=== PATIENT | female | born 1990 | race Caucasian/White ===

== ENCOUNTER → 2016-11-28 | Outpatient (CLI) | payer OTHER ==
[~2016-11-28] MED LIST: FIORTAB4 PO; FLUO20 PO; LABE100 PO; LEVO.05 PO; OXYC1SOL5 PO
== END ==
LOC: HPND 07:46
PROVIDERS: ATTEND Obstetrics & Gynecology
DX: O09.211 Supervision of pregnancy with history of pre-term labor, first trimester (principal)
CPT/HCPCS: 36415; 76813

== ENCOUNTER → 2017-01-02 | Outpatient (CLI) | payer OTHER | LOC: HPND 07:50 | PROVIDERS: ATTEND Obstetrics & Gynecology | DX: O44.22 Partial placenta previa NOS or without hemorrhage, second trimester (principal); O99.322 Drug use complicating pregnancy, second trimester; O99.282 Endocrine, nutritional and metabolic diseases complicating pregnancy, second trimester; O09.292 Supervision of pregnancy with other poor reproductive or obstetric history, second trimester; Z3A.18 18 weeks gestation of pregnancy | CPT/HCPCS: 76811; 76817 ==

== ENCOUNTER → 2017-01-30 | Outpatient (CLI) | payer OTHER | LOC: HPND 07:52 | PROVIDERS: ATTEND Obstetrics & Gynecology | DX: O99.322 Drug use complicating pregnancy, second trimester (principal); O09.292 Supervision of pregnancy with other poor reproductive or obstetric history, second trimester; O44.42 Low lying placenta NOS or without hemorrhage, second trimester; O99.282 Endocrine, nutritional and metabolic diseases complicating pregnancy, second trimester; Z3A.22 22 weeks gestation of pregnancy | CPT/HCPCS: 76816; 76825; 76827; 93325 ==

== ENCOUNTER → 2017-03-21 | Emergency (ER) | payer OTHER ==
[~2017-03-21] MED LIST changes: +ASPI-516 CHEW; +COLA100C5; +PREN1PAK9; +PROC10TA PO; +TYLE325T PO; +ZOFR4TAB PO
[2017-03-21 11:45] VITALS: BP 117/76; PULSE 90
[2017-03-21 12:00] VITALS: BP 131/96; PULSE 98
--- NOTE | 2017-03-21 12:08 | PD ---
HPI Chief Complaint r/o preE Date Seen: Mar 21, 2017 Time Seen: 11:57 Travel History International Travel<30 Days: No Contact w/Intl Traveler<30Days: No Known Affected Area: No History of Present Illness HPI 26y/o @ 29.1wks. She has PNC with Dr. Baum. She has a h/o preE/ abruption and at 30wks with first . Has been on 81mg ASA this since 8wks. Also has a h/o migraines (on fiorcet, compazine). Presents today with c/o worsening BECKER over the past week along with some spots in her vision and R sided lower pelvic pain. She also reports swelling in her feet recently. She became concerned by her symptoms given her prior obstetrical outcome and wanted to come in for evaluation. She denies any LOF, VB, or ctx. +FM. Weeks Gestation: 29 Para: 1 : 2 Last Menstrual Period: Mar 21, 2017 History Past Medical History Narrative Medical Liv's thyroiditis migraines Obstetric History Obstetric History G1. c/s at 30wks for preE/abruption G2. current, on ASA 81mg Past Surgical History Narrative Surgical CS tonsillectomy Family History Family History: Negative Social History Alcohol Use: No Tobacco Use: No Substance Abuse: No Allergies-Medications (Allergen,Severity, Reaction): Coded Allergies: sumatriptan (Unverified Adverse Reaction, Severe, WORSE HEADACHE, 11/27/16) Home Meds Reported Medications Acetaminophen (Tylenol) 325 Mg Tab, 650 MG PO Q6H Y for PAIN SCALE 1 TO 3, TAB 0 Refills 03/21/17 Prochlorperazine Maleate (Prochlorperazine Maleate) 10 Mg Tab, 10 MG PO Q6H Y for NAUSEA OR VOMITING, TAB 0 Refills 03/21/17 Docusate Sodium (Colace) 100 Mg Capsule 03/21/17 Ondansetron (Zofran) 4 Mg Tab, 4 MG PO Q6HR Y for NAUSEA OR VOMITING, TAB 0 Refills 03/21/17 Aspirin (Aspirin) 81 Mg Chew, 81 MG CHEW DAILY, TAB 0 Refills 03/21/17 Mv & Min W/Fe Prot Cool ( + Complete Multi 18-0.8 & 290 mg) 18 Mg Iron-800 Mcg-290 Mg-225 Mg Reza 03/21/17 Gfryvitlpc-Vcaovqgnyatrd-Hcnkk (Fioricet) Tab, 1 TAB PO Q4H Y for PAIN, TAB FOR HEADACHE 01/05/13 Levothyroxine Sodium (Synthroid) 50 Mcg Tab, 50 MCG PO DAILY 07/17/12 Discontinued Reported Medications Fluoxetine HCl (Prozac 20 Mg Cap) 20 Mg Cap, 20 MG PO DAILY 10/09/11 Discontinued Scripts Oxycodone W/ Acetaminophen (Oxycodone/Acetaminophen 5-325 mg/5Ml) 5 mg/325 mg Tab, 2 TAB PO Q4H Y for PAIN SCALE 5 TO 10, #62 TAB Prov:Julien Baum MD 11/14/15 Labetalol HCl (Trandate 100 mg Tab) 100 Mg Tab, 100 MG PO BID for Blood Pressure Management, #60 TAB Prov:Julien Buam MD 11/14/15 Review of Systems Except as stated in HPI: all other systems reviewed are Neg Physical Exam Narrative General: well developed, well nourished, no acute distress HEENT: normocephalic atraumatic, extraocular movements intact, neck supple Abdomen: soft, gravid, nontender, nondistended Extremities: full range of motion Skin: normal coloration, no rashes, no suspicious skin lesions noted Neurologic: cranial nerves 2-12 grossly intact, normal muscle tone, normal gait Psychiatric: normal mood and affect, appropriate FHTs: 145, +accels, age appropriate variables, reactive [place]: quiet Cvx: deferred Data Data Vital Signs Reviewed: Yes Orders Orders Vital Signs (Adult) .ON ADMISSION (03/21/17 11:43) ^ Labor Status (03/21/17 11:43) Urinalysis - C+S If Indicated (03/21/17 11:43) ^ Non Stress Test (03/21/17 11:43) Cbc No Diff, Includes Plts (03/21/17 11:43) Comprehensive Metabolic Panel (03/21/17 11:43) Uric Acid (03/21/17 11:43) Protein Creat Ratio, Random Ur (03/21/17 11:43) MDM Plan 26y/o @ 29.1wks with BECKER, swelling. Pt with known migraines but also h/o preE with abruption at 30wks. PIH labs ordered. AST elevated @ 58 (related to tylenol?) and plts at 198. UA neg for prot. BPs normotensive. FHTs cat 1. Dispo: Spoke with Dr. Baum on pt status. Recommended rpt labs to ensure stability within a few days. Precautions reviewed. Diagnosis Diagnosis: Primary Impression: 29 weeks gestation of Additional Impressions: Headache History of pre-eclampsia in prior , currently in third trimester History of Roderick Cm MD Mar 21, 2017 12:08
[2017-03-21 12:15] VITALS: BP 118/74; PULSE 88
[2017-03-21 12:19] LABS: HEMATOCRIT 33.9 % (35.0-46.0); MEAN CELL VOLUME 87.8 FL (80.0-100.0); MEAN CORPUSCULAR HEMOGLOBIN 29.9 PG (27.0-34.0); MEAN CORPUSCULAR HGB CONC 34.1 % (32.0-36.0); PLATELET COUNT 198 TH/MM3 (150-450); RED BLOOD COUNT 3.86 MIL/MM3 (4.00-5.30); RED CELL DISTRIBUTION WIDTH 13.3 % (11.6-17.2); REVIEW FLAG FINAL; WHITE BLOOD COUNT 8.8 TH/MM3 (4.0-11.0)
[2017-03-21 12:28] LABS: BACTERIA, URINE RARE /hpf; BLOOD, URINE NEG (NEG); COMMENT (UR) CULT NOT INDICATED; CULTURE IF INDICATED CULT NOT INDICATED; GLUCOSE,URINE NEG (NEG); KETONE, URINE 10 mg/dL (NEG); NITRITE,URINE NEG (NEG); SQUAMOUS EPITHELIAL CELL URINE 2 /hpf (0-5); URINE COLOR LIGHT-YELLOW (YELLW/STRAW)
[2017-03-21 12:30] VITALS: BP 117/77; PULSE 84
[2017-03-21 12:39] LABS: ALKALINE PHOSPHATASE 94 U/L (45-117); ALT (GPT) 16 U/L (10-53); ANION GAP 7 MEQ/L (5-15); BICARBONATE 23.8 MEQ/L (21.0-32.0); BLOOD UREA NITROGEN 5 MG/DL (7-18); CHLORIDE 106 MEQ/L (98-107); GLOMERULAR FILTRATION RATE 154 ML/MIN (>89); SODIUM (NA) 137 MEQ/L (136-145); TOTAL BILIRUBIN ADULT 0.3 MG/DL (0.2-1.0)
[2017-03-21 12:45] VITALS: BP 115/79; PULSE 85
[2017-03-21 12:49] LABS: AST (GOT) 52 U/L (15-37); POTASSIUM 4.1 MEQ/L (3.5-5.1)
[2017-03-21 13:00] VITALS: BP 120/80; PULSE 93
== END | disposition home or self-care (01) ==
LOC: HOBED 11:21
DX: O26.893 Other specified pregnancy related conditions, third trimester (principal); R51 Headache; Z3A.29 29 weeks gestation of pregnancy; Z79.82 Long term (current) use of aspirin; Z87.59 Personal history of other complications of pregnancy, childbirth and the puerperium
CPT/HCPCS: 80053; 81001; 82570; 84156; 84550; 85027; 99283

== ENCOUNTER → 2017-03-28 | Outpatient (CLI) | payer OTHER ==
[~2017-03-28] MED LIST changes: -FLUO20 PO; -LABE100 PO; -OXYC1SOL5 PO
== END ==
LOC: HPND 07:54
PROVIDERS: ATTEND Obstetrics & Gynecology
DX: O99.323 Drug use complicating pregnancy, third trimester (principal); O09.293 Supervision of pregnancy with other poor reproductive or obstetric history, third trimester
CPT/HCPCS: 76816

== ENCOUNTER 2017-04-03 08:53 | Emergency (ER) | payer OTHER ==
[2017-04-03 09:12] VITALS: BP 122/79; PULSE 99
[2017-04-03 09:15] VITALS: BP 119/79; PULSE 102
[2017-04-03 09:30] VITALS: BP 117/76; PULSE 96
[2017-04-03 09:45] VITALS: BP 121/84; PULSE 102
[2017-04-03 09:55] LABS: BACTERIA, URINE RARE /hpf; BILIRUBIN, URINE NEG (NEG); BLOOD, URINE NEG (NEG); GLUCOSE,URINE NEG (NEG); KETONE, URINE 40 mg/dL (NEG); MUCUS URINE FEW /lpf (OCC); NITRITE,URINE NEG (NEG); PH, URINE 7.5 (5.0-8.5); SQUAMOUS EPITHELIAL CELL URINE 2 /hpf (0-5); URINE COLOR YELLOW (YELLW/STRAW); URINE LEUKOCYTE ESTERASE NEG (NEG)
[2017-04-03 10:34] LABS: HEMATOCRIT 33.5 % (35.0-46.0); HEMOGLOBIN 11.5 GM/DL (11.6-15.3); MEAN CELL VOLUME 88.3 FL (80.0-100.0); MEAN CORPUSCULAR HEMOGLOBIN 30.5 PG (27.0-34.0); MEAN CORPUSCULAR HGB CONC 34.5 % (32.0-36.0); MEAN PLATELET VOLUME 9.9 FL (7.0-11.0); PLATELET COUNT 211 TH/MM3 (150-450); RED BLOOD COUNT 3.79 MIL/MM3 (4.00-5.30); RED CELL DISTRIBUTION WIDTH 12.7 % (11.6-17.2); WHITE BLOOD COUNT 7.6 TH/MM3 (4.0-11.0)
--- NOTE | 2017-04-03 10:46 | PD ---
HPI Chief Complaint Elevated blood pressure Date Seen: Apr 03, 2017 Time Seen: 10:43 Travel History International Travel<30 Days: No Contact w/Intl Traveler<30Days: No Known Affected Area: No History of Present Illness HPI 26-year-old who is at 31 weeks gestation comes in complaining of elevated blood pressures while taking her pressure at home with a home blood pressure cuff. Patient tried on her as well and his blood pressure was normal. She members the diastolic being in the high 80s and the systolic being and 140s. Her history is concerning for a history of severe preeclampsia at 29 weeks in her last necessitating a section for placental abruption. Patient states that this her AST has been slightly elevated and she has been seeing perinatology. She has been maintained on a baby aspirin per day. She also has Liv thyroiditis that is controlled and presently she is taking Synthroid. She has normal migraine headaches that have been consistently present during this for which she takes Compazine, Zofran, and Tylenol with the occasional use of Fioricet. She does have a headache this morning but states that it seems to feel more like her normal migraine she denies abdominal pain or contractions at this time. Denies vaginal bleeding Weeks Gestation: 31 Para: 1 : 2 History Past Medical History Narrative Medical Liv's thyroiditis Obstetric History Obstetric History section with her last due to severe preeclampsia and placental abruption at 29-30 weeks' gestation Past Surgical History Narrative Surgical Family History Family History: Negative Social History Alcohol Use: No Tobacco Use: No Substance Abuse: No Allergies-Medications (Allergen,Severity, Reaction): Coded Allergies: sumatriptan (Unverified Adverse Reaction, Severe, WORSE HEADACHE, 11/27/16) Home Meds Reported Medications Acetaminophen (Tylenol) 325 Mg Tab, 650 MG PO Q6H Y for PAIN SCALE 1 TO 3, TAB 0 Refills 03/21/17 Prochlorperazine Maleate (Prochlorperazine Maleate) 10 Mg Tab, 10 MG PO Q6H Y for NAUSEA OR VOMITING, TAB 0 Refills 03/21/17 Docusate Sodium (Colace) 100 Mg Capsule 03/21/17 Ondansetron (Zofran) 4 Mg Tab, 4 MG PO Q6HR Y for NAUSEA OR VOMITING, TAB 0 Refills 03/21/17 Aspirin (Aspirin) 81 Mg Chew, 81 MG CHEW DAILY, TAB 0 Refills 03/21/17 Mv & Min W/Fe Prot Cool ( + Complete Multi 18-0.8 & 290 mg) 18 Mg Iron-800 Mcg-290 Mg-225 Mg Reza 03/21/17 Rcweqconku-Jhsehhdkjduvz-Jkdvy (Fioricet) Tab, 1 TAB PO Q4H Y for PAIN, TAB FOR HEADACHE 01/05/13 Levothyroxine Sodium (Synthroid) 50 Mcg Tab, 50 MCG PO DAILY 07/17/12 Review of Systems Except as stated in HPI: all other systems reviewed are Neg Physical Exam Narrative GENERAL: Well-nourished, well-developed patient. SKIN: Warm and dry. HEAD: Normocephalic and atraumatic. EYES: No scleral icterus. No injection or drainage. ENT: No nasal drainage noted. Mucous membranes pink. Airway patent. NECK: Supple, trachea midline. No JVD. CARDIOVASCULAR: Regular rate and rhythm without murmurs, gallops, or rubs. RESPIRATORY: Breath sounds equal bilaterally. No accessory muscle use. ABDOMEN/GI: Abdomen soft, non-tender, bowel sounds present, no rebound, no guarding Gravid to [30-] weeks size Fundal Height: [-] GENITOURINARY: Deferred External Genitalia: intact and normal in appearance BUS glands: [-] Cervix: [-] Dilatation: [-] Effacement: [-] Station: [-] Presentation: [-] Membranes: [intact or ruptured] Uterine Contractions: [Absent-] FHT's: Category: [1-] Baseline: [140-] Reactive: [Moderate-] Variability: [Moderate-] Decels: [Absent] EXTREMITIES: No cyanosis or edema. BACK: Nontender without obvious deformity. No CVA tenderness. NEUROLOGICAL: Awake and alert. Motor and sensory grossly within normal limits. Five out of 5 muscle strength in all muscle groups. Normal speech. Data Data Vital Signs Reviewed: Yes Orders Orders Vital Signs (Adult) .ON ADMISSION (04/03/17 09:25) ^ Labor Status (04/03/17 09:25) Urinalysis - C+S If Indicated (04/03/17 09:25) ^ Non Stress Test (04/03/17 09:25) Cbc No Diff, Includes Plts (04/03/17 09:25) Comprehensive Metabolic Panel (04/03/17 09:25) Uric Acid (04/03/17 09:25) Protein Creat Ratio, Random Ur (04/03/17 09:25) Labs Laboratory Tests Test 04/03/17 09:12 04/03/17 10:00 Urine Color YELLOW Urine Turbidity CLEAR Urine pH 7.5 Urine Specific [place] 1.009 Urine Protein NEG mg/dL Urine Glucose (UA) NEG mg/dL Urine Ketones 40 mg/dL Urine Occult Blood NEG Urine Nitrite NEG Urine Bilirubin NEG Urine Urobilinogen LESS THAN 2.0 MG/DL Urine Leukocyte Esterase NEG Urine RBC LESS THAN 1 /hpf Urine WBC 1 /hpf Urine Squamous Epithelial Cells 2 /hpf Urine Bacteria RARE /hpf Urine Mucus FEW /lpf Microscopic Urinalysis Comment CULT NOT INDICATED Urine Random Creatinine 47 MG/DL Urine Random Total Protein 16 MG/DL Urine Protein/Creatinine Ratio 0.34 White Blood Count 7.6 TH/MM3 Red Blood Count 3.79 MIL/MM3 Hemoglobin 11.5 GM/DL Hematocrit 33.5 % Mean Corpuscular Volume 88.3 FL Mean Corpuscular Hemoglobin 30.5 PG Mean Corpuscular Hemoglobin Concent 34.5 % Red Cell Distribution Width 12.7 % Platelet Count 211 TH/MM3 Mean Platelet Volume 9.9 FL Blood Urea Nitrogen 6 MG/DL Creatinine 0.47 MG/DL Random Glucose 95 MG/DL Albumin 2.6 GM/DL Calcium Level 8.1 MG/DL Uric Acid 4.2 MG/DL Aspartate Amino Transf (AST/SGOT) 11 U/L Sodium Level 139 MEQ/L Potassium Level 3.5 MEQ/L Chloride Level 106 MEQ/L Carbon Dioxide Level 23.9 MEQ/L Anion Gap 9 MEQ/L Estimat Glomerular Filtration Rate 158 ML/MIN Laboratory Tests Test 04/03/17 09:12 04/03/17 10:00 Urine Color YELLOW Urine Turbidity CLEAR Urine pH 7.5 Urine Specific [place] 1.009 Urine Protein NEG Urine Glucose (UA) NEG Urine Ketones 40 Urine Occult Blood NEG Urine Nitrite NEG Urine Bilirubin NEG Urine Urobilinogen LESS THAN 2.0 Urine Leukocyte Esterase NEG Urine RBC LESS THAN 1 Urine WBC 1 Urine Squamous Epithelial Cells 2 Urine Bacteria RARE Urine Mucus FEW Microscopic Urinalysis Comment CULT NOT INDICATED Urine Random Creatinine 47 Urine Random Total Protein 16 Urine Protein/Creatinine Ratio 0.34 White Blood Count 7.6 Red Blood Count 3.79 Hemoglobin 11.5 Hematocrit 33.5 Mean Corpuscular Volume 88.3 Mean Corpuscular Hemoglobin 30.5 Mean Corpuscular Hemoglobin Concent 34.5 Red Cell Distribution Width 12.7 Platelet Count 211 Mean Platelet Volume 9.9 MDM Medical Record Reviewed: Yes Plan 26-year-old who is at 31 weeks gestation with a history of preeclampsia as well as placental abruption necessitating section her previous . Headache today that is improving with hydration and Compazine Patient had a previous slightly elevated AST possibly due to daily Tylenol use. This is back to normal and patient has decreased her use of Tylenol. Blood work is all normal including a basic metabolic, uric acid, CBC and UA, patient is normotensive and will be sent home with follow-up as scheduled with Dr. cohen Diagnosis Diagnosis: Primary Impression: 31 weeks gestation of Additional Impressions: History of section complicating History of placental abruption History of severe pre-eclampsia Disposition: DISCHARGE HOME Carolyn Shea MD Apr 03, 2017 10:46
[2017-04-03 11:01] LABS: ALBUMIN 2.6 GM/DL (3.4-5.0); AST (GOT) 11 U/L (15-37); BICARBONATE 23.9 MEQ/L (21.0-32.0); BLOOD UREA NITROGEN 6 MG/DL (7-18); CALCIUM 8.1 MG/DL (8.5-10.1); CHLORIDE 106 MEQ/L (98-107); CREATININE 0.47 MG/DL (0.50-1.00); GLOMERULAR FILTRATION RATE 158 ML/MIN (>89); GLUCOSE,RANDOM 95 MG/DL (74-106); SODIUM (NA) 139 MEQ/L (136-145)
[2017-04-03 11:04] LABS: ALKALINE PHOSPHATASE 104 U/L (45-117); ALT (GPT) 9 U/L (10-53); TOTAL BILIRUBIN ADULT 0.2 MG/DL (0.2-1.0); TOTAL PROTEIN 6.3 GM/DL (6.4-8.2)
== END 2017-04-03 11:45 | disposition home or self-care (01) ==
LOC: HOBED 08:53
DX: O26.893 Other specified pregnancy related conditions, third trimester (principal); R51 Headache; O99.283 Endocrine, nutritional and metabolic diseases complicating pregnancy, third trimester; E06.3 Autoimmune thyroiditis; Z3A.31 31 weeks gestation of pregnancy; Z79.82 Long term (current) use of aspirin; Z79.899 Other long term (current) drug therapy; Z88.8 Allergy status to other drugs, medicaments and biological substances
CPT/HCPCS: 36415; 59025; 80053; 81001; 82570; 84156; 84550; 85027

== ENCOUNTER 2017-05-17 13:52 | Inpatient (IN) | payer OTHER ==
[~2017-05-17] VITALS: Ht 149.9 cm; Wt 70.0 kg
[2017-05-17] VITALS (25 sets, daily range): BP systolic 134–170; BP diastolic 81–109; PULSE 82–129; RESP 16–18; TEMP 96.8–98.3; O2SAT 98–99
[2017-05-17] MEDS: LACTATED RINGER'S 1000 ML INJ 1,000 ML IV SCH ×3 (13:04→23:04)
[~2017-05-17 13:52] MED LIST changes: +DEXAMETHASONE SOD PHOS 4 MG/ML VIAL IV ONE; +LACTATED RINGER'S 1000 ML INJ 1,000 ML IV ONE; +ONDANSETRON HCL 4 MG/2 ML VIAL IV ONE; +OXYTOCIN 10 UNIT/ML AMP IV ONE; +PHENYLEPH/NS 1000 MCG/10 ML SYR IV ONE
--- NOTE | 2017-05-17 14:57 | MH ---
cc: ADONIS JEREZ DATE OF ADMISSION 05/17/2017 ADMITTING DIAGNOSIS 1. at 37-38 weeks. 2. Severe preeclampsia. 3. Previous . 4. Multiparity. HISTORY OF PRESENT ILLNESS This is a 26-year-old, white female, para 0-1-0-1, LMP of 06/29/2016, EDC of 06/05/2017. The patient presented yesterday with a blood pressure of 140/90 and 140/100. She was placed on bedrest and begun on labetalol. She returned to the office today with blood pressure of 160/110, severe headache and 2+ proteinuria. Reflexes were brisk at 3+. She is now admitted for delivery. PAST OB HISTORY Her past OB history notable for delivery at 29-30 weeks for preeclampsia severe with partial abruption, breech presentation. PAST SURGICAL HISTORY T&A in childhood. ALLERGIES CATS. TRANSFUSIONS None. SOCIAL HISTORY She is . She is employed at [employer] in sales. Alcohol, tobacco and drugs are none. FAMILY HISTORY Noncontributory. PHYSICAL EXAMINATION GENERAL: A well-nourished, well-developed white female. VITAL SIGNS: Stable. Blood pressure 160/110. HEENT: Exam is normal. CHEST: Clear. HEART: Regular rate. ABDOMEN: Gravid with EFW of 3000 grams. CERVIX: The cervix is closed. EXTREMITIES: Minimal edema. Reflexes 3+. ASSESSMENT As above. PLAN She is now admitted for repeat section. She desires a bilateral tubal interruption for permanent sterility. She is aware the tubal is permanent, non-reversible with a small risk of failure and small risk of prematurity. Her ultrasound showed a posterior placenta. MD BRIAN Pearl/BETH /2:39 PM /2:43 PM
[2017-05-17] MEDS: LACTATED RINGER'S 1000 ML IV SCH ×2 (15:15→21:55)
[2017-05-17] MEDS ORDERED: LIDOCAINE 2% JELLY 5 ML TUBE TOPICAL PRN (15:15)
[2017-05-17] MEDS ORDERED: LACTATED RINGER'S 1000 ML IV ONE (15:15)
[2017-05-17] MEDS ORDERED: CITRIC ACID-SODIUM CITRATE LIQ 30 ML UDC PO SCH (15:15)
[2017-05-17] MEDS ORDERED: ceFAZolin 2 GM PREMIX 50 ML IV SCH (15:15)
[2017-05-17 16:22] LABS: AUTOMATED NEUTROPHIL # 6.4 TH/MM3 (1.8-7.7); BASOPHIL % 0.1 % (0.0-2.0); EOSINOPHIL % 0.2 % (0.0-4.0); HEMATOCRIT 36.5 % (35.0-46.0); HEMOGLOBIN 12.7 GM/DL (11.6-15.3); LYMPH % 17.7 % (9.0-44.0); LYMPHOCYTE # 1.5 TH/MM3 (1.0-4.8); MEAN CELL VOLUME 86.9 FL (80.0-100.0); MEAN CORPUSCULAR HEMOGLOBIN 30.4 PG (27.0-34.0); MEAN CORPUSCULAR HGB CONC 34.9 % (32.0-36.0); MEAN PLATELET VOLUME 11.5 FL (7.0-11.0); MONO % 7.4 % (0.0-8.0); MONOCYTE # 0.6 TH/MM3 (0-0.9); NEUT % 74.6 % (16.0-70.0); PLATELET COUNT 138 TH/MM3 (150-450); RED CELL DISTRIBUTION WIDTH 13.1 % (11.6-17.2); WHITE BLOOD COUNT 8.5 TH/MM3 (4.0-11.0)
[2017-05-17 16:44] LABS: ALBUMIN 2.9 GM/DL (3.4-5.0); AST (GOT) 18 U/L (15-37); BICARBONATE 21.1 MEQ/L (21.0-32.0); BLOOD UREA NITROGEN 11 MG/DL (7-18); CALCIUM 8.7 MG/DL (8.5-10.1); CHLORIDE 106 MEQ/L (98-107); CREATININE 0.63 MG/DL (0.50-1.00); GLOMERULAR FILTRATION RATE 113 ML/MIN (>89); GLUCOSE,RANDOM 71 MG/DL (74-106); SODIUM (NA) 137 MEQ/L (136-145)
[2017-05-17 16:45] LABS: ALT (GPT) 9 U/L (10-53)
[2017-05-17 16:48] LABS: ALKALINE PHOSPHATASE 167 U/L (45-117); TOTAL BILIRUBIN ADULT 0.3 MG/DL (0.2-1.0); TOTAL PROTEIN 6.6 GM/DL (6.4-8.2)
[2017-05-17 17:12] LABS: BILIRUBIN, URINE NEG (NEG); BLOOD, URINE NEG (NEG); GLUCOSE,URINE NEG (NEG); KETONE, URINE NEG (NEG); NITRITE,URINE NEG (NEG); URINE COLOR YELLOW (YELLW/STRAW); URINE LEUKOCYTE ESTERASE NEG (NEG)
[2017-05-17] MEDS ORDERED: MEASLES, MUMPS, RUBELLA VACCINE 0.5 ML VIAL SQ ONE (17:15)
[2017-05-17] MEDS ORDERED: MAGNESIUM SULFATE 4 GM PREMIX 100 ML IV ONE (17:15)
[2017-05-17] MEDS ORDERED: OXYTOCIN 30 UNITS-500ML PREMIX 500 ML IV ONE (17:15)
[2017-05-17] MEDS ORDERED: oxyCODONE/ACETAMINOPHEN 5 MG/325 MG TAB PO PRN (17:15)
[2017-05-17] MEDS ORDERED: ZOLPIDEM TARTRATE 5 MG TAB PO PRN (17:15)
[2017-05-17] MEDS ORDERED: CALCIUM GLUCONATE 10% 1 GM/10 ML VIAL IV PUSH PRN (17:15)
[2017-05-17] MEDS ORDERED: ONDANSETRON HCL 4 MG/2 ML VIAL IVP PRN (17:15)
[2017-05-17] MEDS ORDERED: SODIUM CHLORIDE 0.9% FLUSH 10 ML FLUSH IV FLUSH PRN (17:15)
[2017-05-17] MEDS ORDERED: LABETALOL HCL 100 MG/20 ML VIAL IV PUSH PRN (17:15)
[2017-05-17] MEDS ORDERED: NIFEdipine 10 MG CAP PO PRN ×3 (17:15→17:45)
[2017-05-17] MEDS ORDERED: KETOROLAC TROMETHAMINE 60 MG/2 ML (IM) VIAL IM PRN (17:15)
[2017-05-17] MEDS ORDERED: MORPHINE SULFATE PF 5 MG/10 ML VIAL ONE (17:30)
[2017-05-17] MEDS ORDERED: ACETAMINOPHEN 1000 MG/100 ML 100 ML IV ONE (17:31)
[2017-05-17] MEDS: ACETAMINOPHEN 1000 MG/100 ML VIAL IV SCH (18:00)
[2017-05-17] MEDS ORDERED: OXYTOCIN 30 UNITS-500ML PREMIX 500 ML IV PRN (18:15)
[2017-05-17] MEDS ORDERED: MAGNESIUM SULFATE 4 GM PREMIX 100 ML ONE (18:57)
[2017-05-17] MEDS ORDERED: MAGNESIUM SULFATE 40 GM ONE (18:57)
[2017-05-17] MEDS: MAGNESIUM SULFATE 40 GM PREMIX 1,000 ML IV SCH (19:22)
[2017-05-17] MEDS ORDERED: LABETALOL HCL 100 MG/20 ML VIAL ONE (19:29)
[2017-05-17] MEDS ORDERED: KETOROLAC TROMETHAMINE 60 MG/2 ML (IM) VIAL IM ONE (19:32)
[2017-05-17] MEDS: SODIUM CHLORIDE 0.9% FLUSH 10 ML FLUSH IV FLUSH SCH (21:00)
[2017-05-17] MEDS ORDERED: diphenhydrAMINE HCL 50 MG/ML VIAL IM ONE (21:15)
[2017-05-18] VITALS (37 sets, daily range): BP systolic 96–153; BP diastolic 47–103; PULSE 76–107; RESP 16–20; TEMP 97.4–98.6; O2SAT 97–98
[2017-05-18] MEDS: ACETAMINOPHEN 1000 MG/100 ML VIAL IV SCH ×2 (02:22→10:20)
[2017-05-18] MEDS: diphenhydrAMINE HCL 25 MG CAP PO PRN ×2 (04:28→20:49)
[2017-05-18] MEDS: LACTATED RINGER'S 1000 ML IV SCH ×2 (04:35→12:00)
[2017-05-18] MEDS: DOCUSATE SODIUM 50 MG/SENNA 8.6 MG TAB PO PRN ×2 (04:59→20:54)
[2017-05-18] MEDS: IBUPROFEN 600 MG TAB PO PRN (05:00)
[2017-05-18] MEDS: oxyCODONE/ACETAMINOPHEN 5 MG/325 MG TAB PO PRN ×4 (05:00→23:53)
[2017-05-18] MEDS: LACTATED RINGER'S 1000 ML INJ 1,000 ML IV SCH (06:24)
[2017-05-18] MEDS: ACETAMIN 325 MG/BUTALBITAL 50 MG/CAFFEINE 40 MG TAB PO PRN ×2 (08:35→18:21)
[2017-05-18] MEDS: SODIUM CHLORIDE 0.9% FLUSH 10 ML FLUSH IV FLUSH SCH ×2 (09:00→20:07)
[2017-05-18 09:06] LABS: AUTOMATED NEUTROPHIL # 9.2 TH/MM3 (1.8-7.7); BASOPHIL % 0.1 % (0.0-2.0); EOSINOPHIL % 0.1 % (0.0-4.0); HEMATOCRIT 36.9 % (35.0-46.0); HEMOGLOBIN 12.7 GM/DL (11.6-15.3); LYMPH % 14.7 % (9.0-44.0); LYMPHOCYTE # 1.7 TH/MM3 (1.0-4.8); MEAN CORPUSCULAR HEMOGLOBIN 29.6 PG (27.0-34.0); MEAN CORPUSCULAR HGB CONC 34.4 % (32.0-36.0); MEAN PLATELET VOLUME 10.6 FL (7.0-11.0); MONO % 6.5 % (0.0-8.0); MONOCYTE # 0.8 TH/MM3 (0-0.9); NEUT % 78.6 % (16.0-70.0); PLATELET COUNT 141 TH/MM3 (150-450); RED BLOOD COUNT 4.29 MIL/MM3 (4.00-5.30); RED CELL DISTRIBUTION WIDTH 12.9 % (11.6-17.2); WHITE BLOOD COUNT 11.8 TH/MM3 (4.0-11.0)
[2017-05-18] MEDS ORDERED: KETOROLAC TROMETHAMINE 30 MG/ML (IVP) VIAL IV PUSH PRN (09:45)
[2017-05-18] MEDS: LABETALOL HCL 200 MG TAB PO SCH ×2 (10:20→20:49)
[2017-05-18] MEDS: MAGNESIUM SULFATE 40 GM PREMIX 1,000 ML IV SCH (13:04)
[2017-05-18 16:18] LABS: BICARBONATE 26.4 MEQ/L (21.0-32.0); CALCIUM 7.4 MG/DL (8.5-10.1); CREATININE 0.9 MG/DL (0.50-1.00)
[2017-05-18 16:29] LABS: CALCIUM-PROTEIN CORRECTED 7.7 MG/DL (8.5-10.1); TOTAL PROTEIN 6.6 GM/DL (6.4-8.2)
--- NOTE | 2017-05-18 20:27 | MP ---
cc: MERIADONIS DATE OF SURGERY 05/17/17 PREOPERATIVE DIAGNOSIS 1. at 37 weeks. 2. Severe preeclampsia. 3. Previous 4. Multiparity. 5. PROM POSTOPERATIVE DIAGNOSIS 1. at 37 weeks. 2. Severe preeclampsia. 3. Previous 4. Multiparity. 5. PROM 6. Delivered PROCEDURE A repeat low transverse section with a bilateral tubal interruption. ANESTHESIA Spinal SURGEON Adonis Baum MD TOE PUNCHER Kelsea Askew ESTIMATED BLOOD LOSS 500 mL FLUIDS 2.2 liters crystalloid OBJECTIVE FINDINGS Following induction of adequate spinal anesthesia, the patient was prepped and draped supine on the operating table left lateral tilt position in sterile fashion with the bladder being drained via Mijares catheterization. The abdomen was opened through a Pfannenstiel incision using the knife to excise her old scar. The fascia was opened transversely, stripped from the rectus muscles at the midline and the peritoneum opened sharply without incident. The bladder flap was taken down sharply, retracted inferiorly with the Bernard blade. The lower uterine segment was incised transversely with a knife, extended with blunt dissection clear fluid. The baby was in LOT position, with take up operator guidance and fundal pressure delivered easily. Mouth was suctioned, cord clamped and cut and the baby passed to awaiting team, viable vigorous female, Apgars 8 and 9, weight 5 pounds 13 ounces. Cord blood sent for typing. Placenta sent for donation. Uterine cavity cleaned with laps. The uterus was exteriorized and closed in two layers of running suture, first with a running locking stitch of 0 Vicryl, the second with running imbricating stitch of 0 Vicryl. The patient has reaffirmed desire for tubal. The left fallopian tube was traced to the normal left ovary, a window made in the mesosalpinx of the fimbriae with the Bovie. The vascular pedicle of the fimbriae left side was doubly clamped with Aisha's, the proximal tube with a hemostat and the distal tube and fimbriae excised with scissors. The vascular pedicle of the fimbriae was ligated with two free ties of 2-0 chromic. The proximal tube was ligated with 2-0 chromic and buried in fundus in Mike fashion. A second suture of 2-0 chromic was used to further affix the tube to the fundus and the same on the right. Posterior inspection was normal. Uterus placed in peritoneal cavity. Irrigation performed. No bleeding was evident. The bladder flap was closed with running stitch of 3-0 Vicryl. Tubal sites were inspected, were intact with no bleeding. All lap and instruments removed. Counts were correct. The anterior peritoneum closed with running stitch of 2-0 Vicryl. The fascia closed with a running locking stitch of 0 Vicryl, corner to midline and tied, subcu closed with running 3-0 Vicryl and skin with running subcuticular 3-0 Vicryl. Dermabond applied. All counts correct and the patient was awake and taken to recovery room in the good condition. MD BRIAN Pearl/ /6:38 PM /7:54 PM MARIE
[2017-05-19] VITALS: BP 124/66; PULSE 86; RESP 16
[2017-05-19 04:00] VITALS: BP 135/91; PULSE 82; RESP 16
[2017-05-19] MEDS: oxyCODONE/ACETAMINOPHEN 5 MG/325 MG TAB PO PRN ×2 (04:30→19:53)
[2017-05-19 08:00] VITALS: BP 148/91; PULSE 83; RESP 18; TEMP 98.1
[2017-05-19] MEDS ORDERED: DIPHTH/TETANUS/ACEL PERTUSSIS (BOOSTER) 0.5 ML VIAL/PFS IM ONE (09:00)
[2017-05-19] MEDS: LABETALOL HCL 200 MG TAB PO SCH ×2 (09:07→19:53)
[2017-05-19 11:51] VITALS: BP 108/57; PULSE 90; RESP 18; TEMP 98
[2017-05-19] MEDS: IBUPROFEN 600 MG TAB PO PRN ×2 (13:19→19:53)
[2017-05-19] MEDS: SIMETHICONE 80 MG CHEWABLE TAB PO PRN ×2 (13:21→19:53)
[2017-05-19 15:45] VITALS: BP 142/96; PULSE 89; RESP 18; TEMP 98.3
[2017-05-19] MEDS: DOCUSATE SODIUM 50 MG/SENNA 8.6 MG TAB PO PRN (19:52)
[2017-05-19 20:00] VITALS: BP 145/96; PULSE 93; RESP 18; TEMP 98.3; O2SAT 98
[2017-05-19] MEDS: SODIUM CHLORIDE 0.9% FLUSH 10 ML FLUSH IV FLUSH SCH (21:00)
[2017-05-20] VITALS: BP 148/88; PULSE 86; RESP 18
[2017-05-20] MEDS: oxyCODONE/ACETAMINOPHEN 5 MG/325 MG TAB PO PRN ×4 (00:12→14:40)
[2017-05-20] MEDS: SIMETHICONE 80 MG CHEWABLE TAB PO PRN (04:38)
[2017-05-20] MEDS: IBUPROFEN 600 MG TAB PO PRN ×3 (04:39→14:35)
[2017-05-20 05:00] VITALS: BP 150/90; PULSE 86; RESP 18
[2017-05-20] MEDS ORDERED: LABE200T2 PO (08:26)
[2017-05-20] MEDS ORDERED: OXYC1TAB63 PO (08:26)
--- NOTE | 2017-05-20 08:26 | HHI.DCPOC ---
Discharge Care Plan Report Symptoms to Your Doctor -Temperature above 100.5 degrees -Redness, of incision or excessive or foul smelling drainage -Unusual pain or calf pain -Increased vaginal bleeding -Painful or difficulty urinating -Feelings of extreme sadness or anxiety after 2 weeks Goals to Promote Your Health * To prevent worsening of your condition and complications * To maintain your health at the optimal level Directions to Meet Your Goals Take your medications as prescribed Follow your dietary instruction Follow activity as directed Ensure plenty of rest for recovery Drink fluids for hydration Keep your appointments as scheduled Take your immunizations and boosters as scheduled If your symptoms worsen call your PCP, if no PCP go to Urgent Care Center or Emergency Room Smoking is Dangerous to Your Health. Avoid second hand smoke Call the 24-hour crisis hotline for domestic abuse at Julien Baum MD May 20, 2017 08:26
[2017-05-20] MEDS: LABETALOL HCL 200 MG TAB PO SCH (08:28)
[2017-05-20 08:29] VITALS: BP 160/104; PULSE 76; TEMP 98.4
[2017-05-20] MEDS ORDERED: NIFEdipine 60 MG SUSTAINED RELEASE TAB PO SCH (09:00)
--- NOTE | 2017-05-20 09:15 | MD ---
cc: ADONIS JEREZ ADMISSION DATE: 05/17/2017 DISCHARGE DATE: 05/20/2017 [facility] Visit Search.Discharge Date ADMISSION DIAGNOSES 1. at 37 weeks. 2. Severe preeclampsia. 3. Previous . 4. Multiparity. DISCHARGE DIAGNOSES 1. at 37 weeks. 2. Severe preeclampsia. 3. Previous . 4. Multiparity. 5. Delivered. HISTORY OF PRESENT ILLNESS The patient is a 26-year-old white female, para 0-1-0-1, LMP of 06/29/2016, EDC of 06/05/2017. Her first delivery was by at 29-30 weeks for severe preeclampsia with partial abruption. This she was maintained on baby aspirin until 37 weeks. Her screens have been normal. She developed hypertension the day prior to admission and then returned the next day for evaluation, had failed to improve on bedrest, developed severe headache, blood pressure 160/110 and 2+ proteinuria. HOSPITAL COURSE She was admitted for repeat section and actually had spontaneous rupture of membranes 1/2 hour prior to delivery. She underwent a repeat section and bilateral tubal interruption with delivery of a viable, vigorous female. Apgars were 8 and 9, weight 5 pounds, 13 ounces. She received mag sulfate therapy for 24 hours postdelivery and p.o. labetalol and Procardia for blood pressure control. Her pre and postop labs were normal. DISCHARGE INSTRUCTIONS She was advised NPV, light activity, no driving and to return to see us in one week. She will call for abnormal pain, bleeding, temperature, signs of infection or depression. DISCHARGE MEDICATIONS She will take all of her routine medications at home and she was given prescriptions for labetalol 200 mg p.o. b.i.d. #60, refill one; Percocet 5, one to two p.o. q.4 hours p.r.n. #60, and Procardia XL 60 mg p.o. b.i.d. #60, refill one. Adonis Jerez MD JAW/SSB /8:37 AM /9:06 AM
[2017-05-20 10:00] VITALS: BP 137/86; PULSE 101; RESP 18
[2017-05-20 12:00] VITALS: BP 152/97; PULSE 88; RESP 14; TEMP 98.4
== END 2017-05-20 14:50 | disposition home or self-care (01) | DRG 766 ==
LOC: H2EB 13:52 → H2EA 20:53 → H1EA 05-18 18:09
PROVIDERS: ADMIT Obstetrics & Gynecology; ATTEND Obstetrics & Gynecology
PROC: 10D00Z1 Extraction of Products of Conception, Low, Open Approach (ICD-10-PCS; principal; 2017-05-17)
PROC: 0UB70ZZ Excision of Bilateral Fallopian Tubes, Open Approach (ICD-10-PCS; 2017-05-17)
DX: O14.14 Severe pre-eclampsia complicating childbirth (principal); O42.92 Full-term premature rupture of membranes, unspecified as to length of time between rupture and onset of labor; O34.211 Maternal care for low transverse scar from previous cesarean delivery; Z30.2 Encounter for sterilization; Z37.0 Single live birth; Z3A.37 37 weeks gestation of pregnancy
CPT/HCPCS: 59025; 80048; 80053; 80307; 81001; 83735; 84155; 84550; 85025; 86850; 86900; 86901; 88302; 90715; J0131; J0690; J1100; J1200; J1885; J2274; J2370; J2405; J2590; J3475; J7120

== ENCOUNTER 2017-08-22 07:13 | Emergency (ER) | payer SELFPAY ==
[2017-08-22] VITALS (8 sets, daily range): BP systolic 145; BP diastolic 62; PULSE 96–120; RESP 15–18; TEMP 97.3–100; O2SAT 98–100
[~2017-08-22] VITALS: Ht 149.9 cm; Wt 62.0 kg
[~2017-08-22 07:13] MED LIST changes: -ASPI-516 CHEW; -DEXAMETHASONE SOD PHOS 4 MG/ML VIAL IV ONE; +LABE200T2 PO; -LACTATED RINGER'S 1000 ML INJ 1,000 ML IV ONE; -ONDANSETRON HCL 4 MG/2 ML VIAL IV ONE; +OXYC1TAB63 PO; -OXYTOCIN 10 UNIT/ML AMP IV ONE; -PHENYLEPH/NS 1000 MCG/10 ML SYR IV ONE
[2017-08-22] MEDS ORDERED: ONDANSETRON HCL 4 MG/2 ML VIAL IV PUSH ONE (07:45)
[2017-08-22] MEDS ORDERED: SODIUM CHLOR 0.9% 1000 ML INJ 1,000 ML IV ONE ×2 (07:45→12:15)
--- NOTE | 2017-08-22 07:49 | PD ---
HPI Chief Complaint: GI Complaint Time Seen by Provider: 07:34 Travel History International Travel<30 days: No Contact w/Intl Traveler<30days: No Traveled to known affect area: No History of Present Illness HPI Patient presents to the emergency department complaining of a vomiting all night. States that she vomited about 5 times since midnight, and emesis was p.o. intake. Takes Phenergan for migraines as needed and she took one Phenergan ago when she began feeling nauseated, but she still vomited. She was diagnosed with bronchitis last week and has been on Bactrim since Saturday. Last dose was approximately 8 PM last night, but she felt nauseated before taking the medication. Positive diarrhea nonbloody that began this evening. Epigastric abdominal pain, but she states that is more soreness. No fever but reports chills. + cough from bronchitis. Denies vaginal discharge, dysuria, sore throat. Last menstrual period 2 weeks ago. His other family members have URI symptoms and her grandmother had vomiting and diarrhea last . Patient stopped taking vitamins 2 weeks ago (had baby 3 months ago). 1410: Temp was 101, given 650mg po tylenol, HR 120s, will check ecg. 1450: Sinus tachy, rate 108, TWI in III, V1, V3, V5-V6. Patient without chest pain, but no old ECG for comparison. Will send a troponin. 1540: Patient resting comfortably. HR 98. Awaiting troponin results. PFSH Past Medical History Diminished Hearing: No Headaches: Yes Respiratory: Yes (BRONCHITIS) Immunizations Current: No Migraines: Yes (SEES DR VILLALTA) Thyroid Disease: Yes ?: Not LMP: 08/07/17 : 0 Past Surgical History Tonsillectomy: Yes (AT AGE 2) Social History Alcohol Use: No Tobacco Use: No Substance Use: No Allergies-Medications (Allergen,Severity, Reaction): Coded Allergies: sumatriptan (Verified Allergy, Intermediate, Headache, 08/22/17) WORSENING BECKER Reported Meds & Prescriptions Reported Meds & Active Scripts Active Zofran Odt (Ondansetron Odt) 4 Mg Tab 4 Mg SL Q8HR PRN 3 Days Labetalol (Labetalol HCl) 200 Mg Tab 200 Mg PO Q12HR Oxycodone-Acetaminophen 5-325 (Oxycodone HCl/Acetaminophen) 5 Mg-325 Mg Tablet 2 Tab PO Q4H PRN Reported Tylenol (Acetaminophen) 325 Mg Tab 650 Mg PO Q6H PRN Prochlorperazine Maleate 10 Mg Tab 10 Mg PO Q6H PRN Colace (Docusate Sodium) 100 Mg Capsule Zofran (Ondansetron HCl) 4 Mg Tab 4 Mg PO Q6HR PRN + Complete Multi 18-0.8 & 290 mg ( Mv & Min W/Fe Prot Cool) 18 Mg Iron-800 Mcg-290 Mg-225 Mg Reza Fioricet (Acetaminophen/Butalbital/Caffeine) Tab 1 Tab PO Q4H PRN FOR HEADACHE Synthroid (Levothyroxine Sodium) 50 Mcg Tab 50 Mcg PO DAILY Review of Systems Except as stated in HPI: all other systems reviewed are Neg Physical Exam Narrative GENERAL: No acute distress. SKIN: Focused skin assessment warm/dry. HEAD: Atraumatic. Normocephalic. EYES: Extraocular muscles intact bilaterally. No scleral icterus. No injection or drainage. ENT: No nasal bleeding or discharge. Mucous membranes pink and moist. NECK: Trachea midline. No JVD. CARDIOVASCULAR: Regular rate and rhythm. No murmur appreciated. RESPIRATORY: No accessory muscle use. Clear to auscultation. Breath sounds equal bilaterally. GASTROINTESTINAL: Abdomen soft, non-tender, nondistended. Hepatic and splenic margins not palpable. MUSCULOSKELETAL: No obvious deformities. No edema. NEUROLOGICAL: Awake and alert. No obvious cranial nerve deficits. Motor grossly within normal limits. Normal speech. PSYCHIATRIC: Appropriate mood and affect; insight and judgment normal. Data Data Last Documented VS Vital Signs Date Time Temp Pulse Resp B/P (MAP) Pulse Ox O2 Delivery O2 Flow Rate FiO2 08/22/17 15:40 98 08/22/17 15:09 99.4 98 08/22/17 13:09 16 Room Air 08/22/17 07:15 145/62 (89) Orders Orders Complete Blood Count With Diff (08/22/17 07:43) Comprehensive Metabolic Panel (08/22/17 07:43) Lipase (08/22/17 07:43) Magnesium (Mg) (08/22/17 07:43) Abdomen, Flat & Upright (08/22/17 07:43) Iv Access Insert/Monitor (08/22/17 07:43) Ecg Monitoring (08/22/17 07:43) Oximetry (08/22/17 07:43) Ed Urine Pregnancytest Poc (08/22/17 07:43) Sodium Chlor 0.9% 1000 Ml Inj (Ns 1000 M (08/22/17 07:45) Ondansetron Inj (Zofran Inj) (08/22/17 07:45) Ondansetron Odt (Zofran Odt) (08/22/17 08:00) Prochlorperazine Inj (Compazine Inj) (08/22/17 12:15) Sodium Chlor 0.9% 1000 Ml Inj (Ns 1000 M (08/22/17 12:15) Acetaminophen (Tylenol) (08/22/17 14:30) Troponin I (08/22/17 15:06) Labs Laboratory Tests Test 08/22/17 08:00 08/22/17 15:00 White Blood Count 9.2 TH/MM3 Red Blood Count 5.00 MIL/MM3 Hemoglobin 14.2 GM/DL Hematocrit 41.7 % Mean Corpuscular Volume 83.3 FL Mean Corpuscular Hemoglobin 28.4 PG Mean Corpuscular Hemoglobin Concent 34.1 % Red Cell Distribution Width 13.3 % Platelet Count 251 TH/MM3 Mean Platelet Volume 8.3 FL Neutrophils (%) (Auto) 92.9 % Lymphocytes (%) (Auto) 3.2 % Monocytes (%) (Auto) 3.3 % Eosinophils (%) (Auto) 0.5 % Basophils (%) (Auto) 0.1 % Neutrophils # (Auto) 8.5 TH/MM3 Lymphocytes # (Auto) 0.3 TH/MM3 Monocytes # (Auto) 0.3 TH/MM3 Eosinophils # (Auto) 0.0 TH/MM3 Basophils # (Auto) 0.0 TH/MM3 CBC Comment DIFF FINAL Differential Comment Blood Urea Nitrogen 16 MG/DL Creatinine 0.69 MG/DL Random Glucose 111 MG/DL Total Protein 7.7 GM/DL Albumin 3.8 GM/DL Calcium Level 8.6 MG/DL Magnesium Level 2.0 MG/DL Alkaline Phosphatase 109 U/L Aspartate Amino Transf (AST/SGOT) 22 U/L Alanine Aminotransferase (ALT/SGPT) 22 U/L Total Bilirubin 0.3 MG/DL Sodium Level 139 MEQ/L Potassium Level 4.1 MEQ/L Chloride Level 105 MEQ/L Carbon Dioxide Level 25.8 MEQ/L Anion Gap 8 MEQ/L Estimat Glomerular Filtration Rate 101 ML/MIN Lipase 76 U/L Troponin I LESS THAN 0.02 NG/ML MDM Medical Decision Making Medical Screen Exam Complete: Yes Emergency Medical Condition: Yes Interpretation(s) CBC: Normal white count; chemistry: Slight increase in glucose Last Impressions Abdomen X-Ray 08/22/17 0743 Signed Impressions: Service Date/Time: August 08:19 - CONCLUSION: 1. Nonobstructed bowel gas pattern. 2. Multiple rounded radiopaque densities scattered throughout the abdomen with a cluster in the right lower abdominal quadrant. Is the patient taking iron supplements? Sly Aaron MD Differential Diagnosis Reaction to Bactrim, gastroenteritis, pancreatitis, colitis, Narrative Course Patient presents to the emergency department with vomiting and diarrhea. We will get abdominal x-ray and check labs. Patient given 1 L IV normal saline and 4 mg of IV Zofran in the ER. 1213: Patient complaint of headache, nausea, and heart rate is 112-120. Will give 10 mg IV Compazine and 1 L of fluids. 1417: Patient reports feeling better but heart rate in the 120s. Repeat temp is 100. Patient given 650mg tylenol po. ECG shows TWI in III, V1, V3, V5-V6. Patient is without chest pain and no prior ecg for comparison. Will send troponin. 1608: Troponin wnl. HR 98. Spoke to patient's primary care doctor please see physician communication note. Physician Communication Physician Communication Sports patient's primary care doctor Dr. Parsons. Advised to have patient call his office in the morning with a progress report of how she is doing. Also want me to discharge her with oral dissolving tablets of Zofran and encourage patient to increase hydration with Gatorade and fluids. Diagnosis Primary Impression: Gastroenteritis Additional Impression: Bronchitis Patient Instructions: Acute Nausea and Vomiting (ED), General Instructions Additional Instructions: 1. Followup with primary care provider in 24 hours. 2. Return to ER immediately for fever, persistent vomiting despite medication, bloody diarrhea, or for any new/worrisome/worsening symptoms. Med/Other Pt SpecificInfo: Prescription(s) given Scripts Ondansetron Odt (Zofran Odt) 4 Mg Tab 4 MG SL Q8HR Y for Nausea/Vomiting for 3 Days, #9 TAB 0 Refills Prov: Savannah Hanson MD 08/22/17 Disposition: 01 DISCHARGE HOME Condition: Stable Savannah Hanson MD August 22, 2017 07:49
[2017-08-22] MEDS ORDERED: ONDANSETRON ODT 4 MG TAB PO ONE (08:00)
[2017-08-22 08:23] LABS: AUTOMATED NEUTROPHIL # 8.5 TH/MM3 (1.8-7.7); BASOPHIL % 0.1 % (0.0-2.0); EOSINOPHIL % 0.5 % (0.0-4.0); HEMATOCRIT 41.7 % (35.0-46.0); HEMOGLOBIN 14.2 GM/DL (11.6-15.3); LYMPH % 3.2 % (9.0-44.0); LYMPHOCYTE # 0.3 TH/MM3 (1.0-4.8); MEAN CELL VOLUME 83.3 FL (80.0-100.0); MEAN CORPUSCULAR HEMOGLOBIN 28.4 PG (27.0-34.0); MEAN CORPUSCULAR HGB CONC 34.1 % (32.0-36.0); MEAN PLATELET VOLUME 8.3 FL (7.0-11.0); MONO % 3.3 % (0.0-8.0); MONOCYTE # 0.3 TH/MM3 (0-0.9); NEUT % 92.9 % (16.0-70.0); PLATELET COUNT 251 TH/MM3 (150-450); RED CELL DISTRIBUTION WIDTH 13.3 % (11.6-17.2); WHITE BLOOD COUNT 9.2 TH/MM3 (4.0-11.0)
[2017-08-22 08:41] LABS: ALBUMIN 3.8 GM/DL (3.4-5.0); AST (GOT) 22 U/L (15-37); BICARBONATE 25.8 MEQ/L (21.0-32.0); BLOOD UREA NITROGEN 16 MG/DL (7-18); CALCIUM 8.6 MG/DL (8.5-10.1); CHLORIDE 105 MEQ/L (98-107); CREATININE 0.69 MG/DL (0.50-1.00); GLOMERULAR FILTRATION RATE 101 ML/MIN (>89); GLUCOSE,RANDOM 111 MG/DL (74-106); SODIUM (NA) 139 MEQ/L (136-145)
[2017-08-22 08:44] LABS: ALKALINE PHOSPHATASE 109 U/L (45-117); ALT (GPT) 22 U/L (10-53); TOTAL BILIRUBIN ADULT 0.3 MG/DL (0.2-1.0); TOTAL PROTEIN 7.7 GM/DL (6.4-8.2)
--- NOTE | 2017-08-22 09:00 | RADRPT ---
EXAM DATE/TIME: 08/22/2017 08:19 [facility] COMPARISON: No previous studies available for comparison. INDICATIONS : Vomiting, nausea, congestion x2 days. MEDICAL HISTORY : None. SURGICAL HISTORY : Tubal ligation. ENCOUNTER: Initial ACUITY: 2 days PAIN SCORE: 5/10 LOCATION: Bilateral abdomen. FINDINGS: Supine and upright views of the abdomen were performed. The abdominal bowel gas pattern is normal. No air fluid levels are seen. Multiple, rounded radiopaque densities are seen in the left upper and b ilateral mid abdomen with a cluster of densities in the right lower abdominal quadrant. I do not nallely tim these correspond to any particular abdominal organ and therefore, likely within bowel. No pneumop eritoneum. Osseous structures are intact. CONCLUSION: 1. Nonobstructed bowel gas pattern. 2. Multiple rounded radiopaque densities scattered throughout the abdomen with a cluster in the right lower abdominal quadrant. Is the patient taking iron supplements? Sly Aaron MD on August 22, 2017 at 8:54 Board Certified Radiologist. This report was verified electronically.
[2017-08-22] MEDS ORDERED: PROCHLORPERAZINE INJ 10 MG/2 ML VIAL IV PUSH ONE (12:15)
[2017-08-22] MEDS ORDERED: ACETAMINOPHEN 325 MG TAB PO ONE (14:30)
[2017-08-22] MEDS ORDERED: ZOFR4TAB3 SL (16:22)
--- NOTE | 2017-08-24 08:45 | EKG ---
Date Performed: 08/22/2017 Time Performed: 14:41:15 PTAGE: 26 years EKG: SINUS TACHYCARDIA NONSPECIFIC T-WAVE ABNORMALITY ABNORMAL RHYTHM ECG NO PREVIOUS TRACING DOCTOR: Sukhdev Zamora Interpretating Date/Time 08/24/2017 08:41:28
== END 2017-08-22 16:25 | disposition home or self-care (01) ==
LOC: NEPC 07:13
DX: K52.9 Noninfective gastroenteritis and colitis, unspecified (principal); J40 Bronchitis, not specified as acute or chronic; R51 Headache; R00.0 Tachycardia, unspecified; R94.31 Abnormal electrocardiogram [ECG] [EKG]; E07.9 Disorder of thyroid, unspecified; Z79.899 Other long term (current) drug therapy; Z88.8 Allergy status to other drugs, medicaments and biological substances
CPT/HCPCS: 74019; 80053; 83690; 83735; 84484; 84703; 85025; 93005; 96361; 96374; 99284; J0780; J7030